=== PATIENT | male | born 1980 | race African-American/Black ===

== ENCOUNTER 2019-04-28 04:31 | Inpatient (IN) | payer OTHER ==
[2019-04-28] VITALS (11 sets, daily range): BP systolic 88–110; BP diastolic 45–67
[~2019-04-28] VITALS: Ht 167.6 cm; Wt 75.1 kg
[2019-04-28] MEDS ORDERED: SODIUM CHLORIDE 0.9% 1,000 ML IV ONE (04:56)
[2019-04-28] MEDS ORDERED: PANTOPRAZOLE SODIUM 40 MG/VIAL IV STA (04:56)
[2019-04-28] MEDS ORDERED: PANTOPRAZOLE 80 MG in SODIUM CHLORIDE 0.9% 80 ML IV ONE (05:00)
[2019-04-28 05:34] LABS: BASOPHILS % 0.6 % (0.0-2.0); EOSINOPHILS % 0.6 % (0.0-5.0); MEAN CORPUSCULAR HEMOGLOBIN 34.1 pg (28.0-32.0); MEAN CORPUSCULAR VOLUME 96.1 fL (80.0-94.0); MEAN PLATELET VOLUME 7.2 fl (7.4-10.4); MONOCYTES % 9.2 % (2.0-8.0); NEUTROPHILS % 68.6 % (40.0-76.0); PLATELET 192 x1000/uL (130-400); RED BLOOD CELL COUNT 1.32 mill/uL (4.7-6.1); RED CELL DISTRIBUTION WIDTH 13.4 % (11.6-14.6)
[2019-04-28 05:37] LABS: HEMATOCRIT. 12.7 % (42.0-52.0); HEMOGLOBIN. 4.5 g/dL (14.0-18.0)
[2019-04-28] MEDS ORDERED: PANTOPRAZOLE SODIUM 40 MG/VIAL IV ONE (05:46)
[2019-04-28 05:47] LABS: CHLORIDE 109 mEq/L (98-107)
[2019-04-28 05:48] LABS: INR 1.1; PROTHROMBIN TIME 11.7 sec (9.6-11.0)
[2019-04-28 05:52] LABS: ETHANOL BLOOD < 10 mg/dL
[2019-04-28 10:43] LABS: BASOPHILS % 0.1 % (0.0-2.0); EOSINOPHILS % 0.1 % (0.0-5.0); HEMOGLOBIN. 7.3 g/dL (14.0-18.0); LYMPHOCYTES % 15.2 % (20.0-50.0); MEAN CORPUSCULAR VOLUME 87.9 fL (80.0-94.0); MEAN PLATELET VOLUME 7.3 fl (7.4-10.4); MONOCYTES % 7.8 % (2.0-8.0); NEUTROPHILS % 76.8 % (40.0-76.0); PLATELET 151 x1000/uL (130-400); RED BLOOD CELL COUNT 2.34 mill/uL (4.7-6.1); RED CELL DISTRIBUTION WIDTH 15.4 % (11.6-14.6)
[2019-04-28 10:55] LABS: HEMATOCRIT. 20.6 % (42.0-52.0)
[2019-04-28 13:17] LABS: HEMOGLOBIN 6.9 g/dL (14.0-18.0)
[2019-04-28 13:19] LABS: TOTAL IRON BINDING CAPACITY 253 ug/dL (250-450)
[2019-04-28 14:51] LABS: FOLIC ACID (FOLATE) SERUM 18.1 ng/mL (>5.38)
[2019-04-28] MEDS ORDERED: SIMETHICONE 40 MG/0.6 ML 30ML ONE (15:01)
[2019-04-28] MEDS ORDERED: MIDAZOLAM HCL 5 MG/5 ML VIAL ONE ×2 (15:25→15:26)
[2019-04-28] MEDS ORDERED: FENTANYL CITRATE/PF 50MCG/ML 2ML VIAL ONE (15:26)
[2019-04-28] MEDS ORDERED: MIDAZOLAM HCL 2 MG/2 ML VIAL IV PRN (15:26)
[2019-04-28] MEDS ORDERED: FENTANYL CITRATE/PF 50MCG/ML 2ML VIAL IV PRN (15:27)
[2019-04-28] MEDS ORDERED: DIPHENHYDRAMINE 50MG/ML VIAL IV PRN (15:34)
[2019-04-28] MEDS ORDERED: DIPHENHYDRAMINE 50MG/ML VIAL ONE (15:36)
[2019-04-28] MEDS ORDERED: DIAZEPAM 5 MG/ML 2ML CPJ IV PRN (15:38)
[2019-04-28] MEDS ORDERED: DIAZEPAM 5 MG/ML 2ML CPJ ONE (15:40)
[2019-04-28] MEDS: SODIUM CHLORIDE 0.9% 1,000 ML IV SCH (17:20)
[2019-04-28] MEDS ORDERED: LORAZEPAM 2MG/ML CPJ IV PRN (19:30)
[2019-04-28 20:45] LABS: HEMATOCRIT 21.4 % (42.0-52.0); HEMOGLOBIN 7.3 g/dL (14.0-18.0)
[2019-04-28] MEDS: CHLORDIAZEPOXIDE 25MG CAPSULE PO SCH (21:11)
[2019-04-28] MEDS: NICOTINE 21MG PATCH TD SCH (21:11)
[2019-04-29] VITALS (16 sets, daily range): BP systolic 76–120; BP diastolic 34–92
[2019-04-29 01:54] LABS: HEMOGLOBIN 6.8 g/dL (14.0-18.0)
[2019-04-29 01:55] LABS: HEMATOCRIT 19.8 % (42.0-52.0)
[2019-04-29] MEDS: SODIUM CHLORIDE 0.9% 1,000 ML IV SCH (05:37)
[2019-04-29] MEDS: CHLORDIAZEPOXIDE 25MG CAPSULE PO SCH ×2 (05:53→14:21)
[2019-04-29 07:14] LABS: BASOPHILS % 0.2 % (0.0-2.0); EOSINOPHILS % 1.2 % (0.0-5.0); HEMATOCRIT. 24.2 % (42.0-52.0); HEMOGLOBIN. 8.3 g/dL (14.0-18.0); LYMPHOCYTES % 20.2 % (20.0-50.0); MEAN CORPUSCULAR HEMOGLOBIN 30.3 pg (28.0-32.0); MEAN CORPUSCULAR VOLUME 88.4 fL (80.0-94.0); MEAN PLATELET VOLUME 7.6 fl (7.4-10.4); MONOCYTES % 7.7 % (2.0-8.0); NEUTROPHILS % 70.7 % (40.0-76.0); PLATELET 140 x1000/uL (130-400); RED BLOOD CELL COUNT 2.73 mill/uL (4.7-6.1); RED CELL DISTRIBUTION WIDTH 16.6 % (11.6-14.6)
[2019-04-29 07:24] LABS: CHLORIDE 117 mEq/L (98-107)
[2019-04-29 07:32] LABS: PHOSPHORUS 2.4 mg/dL (2.5-4.9)
[2019-04-29] MEDS: NICOTINE 21MG PATCH TD SCH (08:44)
[2019-04-29] MEDS ORDERED: PANTOPRAZOLE SODIUM 40 MG/VIAL IV SCH (09:00)
[2019-04-29] MEDS ORDERED: POTASSIUM PHOS,M-BASIC-D-BASIC 10 MMOL in DEXT 5% WATER 246.6667 ML IV ONE (10:30)
[2019-04-29 19:39] LABS: HEMATOCRIT 30.4 % (42.0-52.0); HEMOGLOBIN 10.3 g/dL (14.0-18.0)
[2019-04-30 11:03] LABS: HEMATOCRIT 19.7 % (42.0-52.0)
== END 2019-04-29 20:11 | disposition short-term general hospital (02) | DRG 378 ==
LOC: ER 04:31 → 5EST 06:28 → EDBEDREQTM 06:31 → EDBEDREQ 06:31 → EDBEDREQSVC 06:31 → ENRESERV 07:20 → CANRESERV 07:20 → EDBEDREQSVC 11:38 → ENRESERV 12:35
PROVIDERS: ADMIT Internal Medicine; ATTEND Internal Medicine
PROC: 0DJ08ZZ Inspection of Upper Intestinal Tract, Via Natural or Artificial Opening Endoscopic (ICD-10-PCS; principal; 2019-04-28)
PROC: 30233N1 Transfusion of Nonautologous Red Blood Cells into Peripheral Vein, Percutaneous Approach (ICD-10-PCS; 2019-04-28)
DX: K26.4 Chronic or unspecified duodenal ulcer with hemorrhage (principal); R17 Unspecified jaundice; D50.0 Iron deficiency anemia secondary to blood loss (chronic); D53.9 Nutritional anemia, unspecified; F17.200 Nicotine dependence, unspecified, uncomplicated; Z78.1 Physical restraint status; Z72.89 Other problems related to lifestyle
CPT/HCPCS: 36415; 71045; 76700; 80053; 80320; 82607; 82728; 82746; 83540; 83550; 83735; 84100; 85014; 85018; 85025; 86850; 86900; 86920; 99291; C9113; J1200; J2250; J3010; J3490; J7030; J7050; J7060; P9016; G0480